=== PATIENT | male | born 1945 ===

== ENCOUNTER 2018-01-21 13:16 | Emergency (ER) | payer OTHER ==
[~2018-01-21] VITALS: Ht 152.4 cm; Wt 65.3 kg
[2018-01-21] MEDS ORDERED: RANEXA500 MG (13:45)
[2018-01-21] MEDS ORDERED: PLAVIX75 MG (13:46)
[2018-01-21] MEDS ORDERED: LIPITOR20 MG (13:46)
[2018-01-21] MEDS ORDERED: BISOPROLOL FUMAR5 MG (13:46)
[2018-01-21] MEDS ORDERED: ALTACE5 MG (13:47)
[2018-01-21] MEDS ORDERED: RAMIPRIL2.5 MG (13:47)
[2018-01-21] MEDS ORDERED: NITROGLYCERIN1 EAC1 (13:48)
[2018-01-21] MEDS ORDERED: ASPIR 8181 MG (13:48)
[2018-01-21] MEDS ORDERED: OMEPRAZOLE20 M1 (13:48)
== END 2018-01-21 18:43 | disposition home or self-care (01) ==
LOC: ER 13:16
DX: J01.80 Other acute sinusitis (principal); R05 Cough